=== PATIENT | male | born 1960 | race Caucasian/White ===

== ENCOUNTER → 2022-12-29 11:28 | Outpatient (CLI) | payer MEDICARE, OTHER, SELFPAY ==
--- NOTE | 2022-12-29 11:31 | DI.MRI.S_ITS ---
PROCEDURE: MR PELIS WO/W CON INDICATIONS: prostate nodule TECHNIQUE: Coronal HASTE, axial T1 FSE with fat saturation, 3-plane nonbreath-hold T2 FSE. After the administration of contrast, dynamic axial, delayed axial and coronal VIBE or 2-D FLASH with fat saturation through the pelvis. Optional diffusion weighted imaging and ADC may be performed. COMPARISON: None. FINDINGS: Image quality: Diffusion weighted and dynamic contrast enhanced images are diagnostic. Prostate: Gland size is 5.1 x 5.2 x 3.5 cm; ellipsoid gland volume is 48 mL. No PI-RADS 3 through 5 lesions. Genitourinary system: Bladder wall thickness is normal. Distal ureters are non distended. Moderate left testicular hydrocele with septations. Bowel and peritoneum: No pathologic free pelvic fluid. Inferior colon and small bowel loops are normal in caliber. Colonic diverticulosis without evidence of diverticulitis. Nodes and vessels: No pelvic or inguinal adenopathy by size criteria. Iliac vessels are normal in caliber. Soft tissues: Moderate, fat containing inguinal hernias. Bones: Marrow demonstrates normal overall signal, without lesions to suggest metastases. IMPRESSION: No PI-RADS 3 through 5 lesions. Moderate, fat containing inguinal hernias. Moderate left hydrocele with septations, possibly post infectious/inflammatory. Dictated by: Sunny Foss M.D. on 12/29/2022 at 13:18 Approved by: Sunny Foss M.D. on 12/29/2022 at 13:29
[2022-12-31 12:31] LABS: PSA, Total 4.1 ng/mL (0.0-4.0)
== END ==
PROVIDERS: Family Provider Family Medicine; PCP Internal Medicine; Referring Provider Specialist; Visit Provider Specialist
DX: N40.1 Benign prostatic hyperplasia with lower urinary tract symptoms (principal); N13.8 Other obstructive and reflux uropathy; K40.90 Unilateral inguinal hernia, without obstruction or gangrene, not specified as recurrent; N43.3 Hydrocele, unspecified; K57.90 Diverticulosis of intestine, part unspecified, without perforation or abscess without bleeding
CPT/HCPCS: 36415; 72197; 84153; 84154

== ENCOUNTER → 2023-06-09 10:50 | Outpatient (CLI) | payer MEDICARE, OTHER, SELFPAY ==
[2023-06-11 07:09] LABS: PSA Free % 16.7 % (.); PSA, Total 4.8 ng/mL (0.0-4.0)
== END ==
PROVIDERS: Family Provider Family Medicine; Referring Provider Specialist; Visit Provider Specialist
DX: R97.20 Elevated prostate specific antigen [PSA] (principal)
CPT/HCPCS: 36415; 84153; 84154

== ENCOUNTER → 2023-08-30 10:41 | Outpatient (CLI) | payer MEDICARE, OTHER, SELFPAY ==
[2023-08-31 16:26] LABS: PSA Free % 16.9 % (.); PSA, Total 3.6 ng/mL (0.0-4.0)
== END ==
LOC: LAB 10:44
PROVIDERS: Family Provider Family Medicine; Referring Provider Specialist; Visit Provider Specialist
DX: R97.20 Elevated prostate specific antigen [PSA] (principal)
CPT/HCPCS: 36415; 84153; 84154

== ENCOUNTER → 2023-09-15 10:05 | Outpatient (CLI) | payer MEDICARE, OTHER, SELFPAY | PROVIDERS: Family Provider Family Medicine; PCP Internal Medicine; Visit Provider Specialist | DX: N40.1 Benign prostatic hyperplasia with lower urinary tract symptoms (principal); N13.8 Other obstructive and reflux uropathy; Z80.42 Family history of malignant neoplasm of prostate; Z87.898 Personal history of other specified conditions | CPT/HCPCS: 51798; 81002; 87086; 99214 ==

== ENCOUNTER → 2024-03-09 09:55 | Outpatient (CLI) | payer MEDICARE, OTHER, SELFPAY ==
[2024-03-09 11:43] LABS: Prostate Specific Antigen 5.76 ng/mL (0.10-4.00)
== END ==
PROVIDERS: Family Provider Family Medicine; PCP Internal Medicine; Referring Provider Specialist; Visit Provider Specialist
DX: N40.1 Benign prostatic hyperplasia with lower urinary tract symptoms (principal); N13.8 Other obstructive and reflux uropathy; R97.20 Elevated prostate specific antigen [PSA]; Z87.898 Personal history of other specified conditions
CPT/HCPCS: 36415; 84153

== ENCOUNTER → 2024-06-04 11:30 | Outpatient (CLI) | payer MEDICARE, OTHER, SELFPAY ==
[2024-06-06 11:12] LABS: PSA Free % 15.8 % (.); PSA, Total 5.9 ng/mL (0.0-4.0)
== END ==
PROVIDERS: Family Provider Family Medicine; PCP Internal Medicine; Referring Provider Urology; Visit Provider Urology
DX: N40.1 Benign prostatic hyperplasia with lower urinary tract symptoms (principal); Z87.898 Personal history of other specified conditions; N13.8 Other obstructive and reflux uropathy
CPT/HCPCS: 36415; 84153; 84154

== ENCOUNTER → 2024-09-10 13:07 | Outpatient (CLI) | payer MEDICARE, OTHER, SELFPAY ==
[2024-09-12 09:08] LABS: PSA Free % 19.3 % (.)
== END ==
PROVIDERS: Family Provider Family Medicine; PCP Internal Medicine; Referring Provider Urology; Visit Provider Urology
DX: N40.1 Benign prostatic hyperplasia with lower urinary tract symptoms (principal); N13.8 Other obstructive and reflux uropathy; Z87.898 Personal history of other specified conditions
CPT/HCPCS: 36415; 84153; 84154

== ENCOUNTER → 2024-09-20 11:46 | Outpatient (CLI) | payer MEDICARE, OTHER, SELFPAY | PROVIDERS: Family Provider Family Medicine; PCP Internal Medicine; Visit Provider Urology | DX: N40.1 Benign prostatic hyperplasia with lower urinary tract symptoms (principal); N13.8 Other obstructive and reflux uropathy; N52.9 Male erectile dysfunction, unspecified; R97.20 Elevated prostate specific antigen [PSA] | CPT/HCPCS: 51798; 81002; 87086; 99214 ==

== ENCOUNTER → 2025-05-17 09:26 | Outpatient (CLI) | payer MEDICARE, OTHER, SELFPAY ==
[2025-05-17 11:09] LABS: Prostate Specific Antigen 6.46 ng/mL (0.10-4.00)
== END ==
LOC: LAB 09:29
PROVIDERS: Family Provider Family Medicine; PCP Internal Medicine; Referring Provider Urology; Visit Provider Urology
DX: C61 Malignant neoplasm of prostate (principal)
CPT/HCPCS: 36415; 84153